=== PATIENT | female | born 1980 | race Caucasian/White ===

== ENCOUNTER 2019-02-12 15:02 | Emergency (ER) | payer SELFPAY ==
--- OUTSIDE RECORDS SUMMARY | 2019-02-12 15:04 | XMS REPORT ---
:1980 [facility] Address [address] [place] [address] [address] [place] [address] Care Team Providers Name Role Phone Unavailable Unavailable Unavailable Problems This patient has no known problems. Allergies, Adverse Reactions, Alerts This patient has no known allergies or adverse reactions. Medications This patient has no known medications.
[2019-02-12] MEDS ORDERED: DEXAMETHASONE 10 MG/ML VIAL ONE (15:50)
--- NOTE | 2019-02-12 16:03 | EDPHYS ---
Physician Documentation [facility] Name: Arely Block Age: 38 yrs Sex: Female : 1980 Arrival Date: 02/12/2019 Time: 15:05 Bed 11 Private MD: ED Physician Farzaneh Soria HPI: 02/12 16:02 This 38 yrs old Female presents to ER via Ambulatory with complaints of Sore pm1 Throat, Ear Pain. 16:02 The patient presents with sore throat. The patient describes throat pain as constant, pm1 scratchy. Onset: The symptoms/episode began/occurred 1 month(s) ago. Severity of symptoms: in the emergency department the symptoms are unchanged. Modifying factors: The symptoms are alleviated by nothing, the symptoms are aggravated by swallowing, Patient's oral intake status: good unaware of sick contact. Associated signs and symptoms: Pertinent positives: bilateral ear pain, Pertinent negatives chest pain, chills, cough, fever, flu-like symptoms, headache, shortness of breath, vomiting. The patient has not experienced similar symptoms in the past. The patient has not recently seen a physician. 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 - Social history:: Smoking status: Patient uses tobacco products, smokes one-half pack cigarettes per day. - Ebola Screening: : No symptoms or risks identified at this time. ROS: 16:02 Constitutional: Negative for fever, chills, and weight loss, Eyes: Negative for injury, pm1 pain, redness, and discharge. 16:02 Neck: Negative for injury, pain, and swelling, Cardiovascular: Negative for chest pain, palpitations, and edema, Respiratory: Negative for shortness of breath, cough, wheezing, and pleuritic chest pain, Abdomen/GI: Negative for abdominal pain, nausea, vomiting, diarrhea, and constipation, Back: Negative for injury and pain, : Negative for injury, bleeding, discharge, and swelling, MS/Extremity: Negative for injury and deformity, Skin: Negative for injury, rash, and discoloration, Neuro: Negative for headache, weakness, numbness, tingling, and seizure. 16:02 ENT: Positive for ear pain, sore throat, Negative for rhinorrhea, sinus congestion, sinus pain. Exam: 16:02 Constitutional: This is a well developed, well nourished patient who is awake, alert, pm1 and in no acute distress. Head/Face: Normocephalic, atraumatic. Eyes: Pupils equal round and reactive to light, extra-ocular motions intact. Lids and lashes normal. Conjunctiva and sclera are non-icteric and not injected. Cornea within normal limits. Periorbital areas with no swelling, redness, or edema. ENT: Nares patent. No nasal discharge, no septal abnormalities noted. Tympanic membranes are normal and external auditory canals are clear. Oropharynx with no redness, swelling, or masses, exudates, or evidence of obstruction, uvula midline. Mucous membranes moist. Neck: Trachea midline, no thyromegaly or masses palpated, and no cervical lymphadenopathy. Supple, full range of motion without nuchal rigidity, or vertebral point tenderness. No Meningismus. Chest/axilla: Normal chest wall appearance and motion. Nontender with no deformity. No lesions are appreciated. Cardiovascular: Regular rate and rhythm with a normal S1 and S2. No gallops, murmurs, or rubs. Normal PMI, no JVD. No pulse deficits. Respiratory: Lungs have equal breath sounds bilaterally, clear to auscultation and percussion. No rales, rhonchi or wheezes noted. No increased work of breathing, no retractions or nasal flaring. Abdomen/GI: Soft, non-tender, with normal bowel sounds. No distension or tympany. No guarding or rebound. No evidence of tenderness throughout. Back: No spinal tenderness. No costovertebral tenderness. Full range of motion. Skin: Warm, dry with normal turgor. Normal color with no rashes, no lesions, and no evidence of cellulitis. MS/ Extremity: Pulses equal, no cyanosis. Neurovascular intact. Full, normal range of motion. 16:02 Neuro: Orientation: is normal, Gait: is steady, at a normal pace, without difficulty. Vital Signs: 15:11 BP 112 / 59; Pulse 71; Resp 16; Temp 97.2; Pulse Ox 100% on R/A; Weight 99.79 kg; hb Height 5 ft. 10 in. (177.80 cm); Pain 10/10; 16:25 BP 110 / 66; Pulse 76; Resp 17; Temp 98.4; Pulse Ox 99% ; rv 15:11 Body Mass Index 31.57 (99.79 kg, 177.80 cm) hb MDM: 15:29 Patient medically screened. pm1 16:02 Data reviewed: vital signs. Data interpreted: Pulse oximetry: on room air is 100 %. pm1 Interpretation: normal. Counseling: I had a detailed discussion with the patient and/or guardian regarding: the historical points, exam findings, and any diagnostic results supporting the discharge/admit diagnosis, the need for outpatient follow up, to return to the emergency department if symptoms worsen or persist or if there are any questions or concerns that arise at home. 02/12 15:29 Order name: Strep; Complete Time: 17:33 pm1 02/12 16:12 Order name: Throat Culture EDMS Administered Medications: 15:41 Drug: Decadron 10 mg Route: IM; Site: right deltoid; rv 16:07 Follow up: Response: No adverse reaction rv Disposition: 21:16 Co-signature as Attending Physician, Farzaneh Soria MD. nc2 Disposition: 02/12/19 16:03 Discharged to Home. Impression: Acute pharyngitis, Otalgia, bilateral. - Condition is Stable. - Discharge Instructions: Earache, Adult, Pharyngitis. - Medication Reconciliation Form, Thank You Letter, Antibiotic Education, Prescription Opioid Use form. - Follow up: Emergency Department; When: As needed; Reason: Worsening of condition. Follow up: Private Physician; When: 2 - 3 days; Reason: Recheck today's complaints, Continuance of care, Re-evaluation by your physician. - Problem is new. - Symptoms have improved. Signatures: Dispatcher [employer] EDMS King Rose NP TOWER [employer]FFIC CONTROL SPECIALIST pm1 Margaret Copeland RN RN Farzaneh Soria MD MD nc2 Pablo Wheeler RN RN rv Corrections: (The following items were deleted from the chart) 16:26 16:03 02/12/2019 16:03 Discharged to Home. Impression: Acute pharyngitis; Otalgia, rv bilateral. Condition is Stable. Forms are Medication Reconciliation Form, Thank You Letter, Antibiotic Education, Prescription Opioid Use. Follow up: Emergency Department; When: As needed; Reason: Worsening of condition. Follow up: Private Physician; When: 2 - 3 days; Reason: Recheck today's complaints, Continuance of care, Re-evaluation by your physician. Problem is new. Symptoms have improved. pm1
--- NOTE | 2019-02-12 16:03 | ER ---
[facility] Name: Arely Block Age: 38 yrs Sex: Female : 1980 Arrival Date: 02/12/2019 Time: 15:05 Bed 11 Private MD: Diagnosis: Acute pharyngitis;Otalgia, bilateral Presentation: 02/12 15:10 Presenting complaint: :Left ear pain, sore throat, and subjective fever x 1 month. hb Transition of care: patient was not received from another setting of care. Onset of symptoms is unknown. Risk Assessment: Do you want to hurt yourself or someone else? Patient reports no desire to harm self or others. Initial Sepsis Screen: Does the patient meet any 2 criteria? No. Patient's initial sepsis screen is negative. Does the patient have a suspected source of infection? No. Patient's initial sepsis screen is negative. Care prior to arrival: None. 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 - Social history:: Smoking status: Patient uses tobacco products, smokes one-half pack cigarettes per day. - Ebola Screening: : No symptoms or risks identified at this time. Screenin:07 Abuse screen: Denies threats or abuse. Denies injuries from another. Nutritional rv screening: No deficits noted. Tuberculosis screening: No symptoms or risk factors identified. Fall Risk None identified. Assessment: 16:06 General: Appears in no apparent distress. comfortable, Behavior is calm, cooperative. rv Pain: Complains of pain in ear. Neuro: Level of Consciousness is awake, alert, obeys commands, Oriented to person, place, time, situation. Cardiovascular: Patient's skin is warm and dry. Respiratory: Airway is patent Respiratory effort is even, Breath sounds are clear bilaterally. GI: No signs and/or symptoms were reported involving the gastrointestinal system. : No signs and/or symptoms were reported regarding the genitourinary system. EENT: Throat is clear. Derm: Skin is intact. Musculoskeletal: No signs and/or symptoms reported regarding the musculoskeletal system. Vital Signs: 15:11 BP 112 / 59; Pulse 71; Resp 16; Temp 97.2; Pulse Ox 100% on R/A; Weight 99.79 kg; hb Height 5 ft. 10 in. (177.80 cm); Pain 10/10; 16:25 BP 110 / 66; Pulse 76; Resp 17; Temp 98.4; Pulse Ox 99% ; rv 15:11 Body Mass Index 31.57 (99.79 kg, 177.80 cm) hb ED Course: 15:05 Patient arrived in ED. rg4 15:11 Triage completed. hb 15:12 Arm band placed on left wrist. hb 15:15 Kign Rose NP is PHCP. pm1 15:15 Farzaneh Soira MD is Attending Physician. pm1 15:28 Pablo Wheeler RN is Primary Nurse. rv 16:07 Patient has correct armband on for positive identification. Call light in reach. Pulse rv ox on. NIBP on. 16:26 No provider procedures requiring assistance completed. Patient did not have IV access rv during this emergency room visit. Administered Medications: 15:41 Drug: Decadron 10 mg Route: IM; Site: right deltoid; rv 16:07 Follow up: Response: No adverse reaction rv Outcome: 16:03 Discharge ordered by . pm1 16:26 Discharged to home ambulatory. rv 16:26 Condition: good 16:26 Discharge instructions given to patient, Instructed on discharge instructions, follow up and referral plans. Demonstrated understanding of instructions, follow-up care. 16:26 Patient left the ED. rv Signatures: King Rose NP PODIATRIC MEDICINE PROFESSOR pm1 Margaret Copeland RN RN Adenike Malone rg4 Pablo Wheeler RN RN rv
== END 2019-02-12 16:26 | disposition home or self-care (01) ==
LOC: ER 15:02
DX: J02.9 Acute pharyngitis, unspecified (principal); H92.03 Otalgia, bilateral; F41.9 Anxiety disorder, unspecified; F32.9 Major depressive disorder, single episode, unspecified; F17.210 Nicotine dependence, cigarettes, uncomplicated
CPT/HCPCS: 87070; 87081; 96372; 99283; J1100